=== PATIENT | male | born 1945 | race Caucasian/White ===

== ENCOUNTER → 2017-08-31 | Day surgery (SDC) | payer MEDICARE ==
[~2017-08-31] MED LIST: ALAV10TA10 PO; ALBU0.08 NEB; ALBU1AER5 INH; ASPI1TAB69 PO; BUPIVACAINE/EPINEPHRINE 0.25% PF 30 ML VIAL ONE; DILT1TAB6 PO; DOFE500 PO; FENO67CA PO; FLUT1INH7 INH; FURO40TA PO; GLIM2TAB PO; IPRASOL INH; LISI-515 PO; METF500T PO; MIDAZOLAM HCL 2 MG/2 ML VIAL ONE; MONT10TA4 PO; MORPHINE SULFATE 4 MG/ML INJ ONE; NEOMYCIN/POLYMYXIN/BACITRACIN OINT 15 GM TUBE ONE; OMEG1CAP53 PO; OMEP20TA93 PO; ONDANSETRON HCL 4 MG/2 ML VIAL IV PUSH ONE; PRESCAP5 PO; PROPOFOL 200 MG/20 ML AMP IV ONE; SERT-132 PO; SIMV80TA PO; TEST200I12 IM; TRAZ50TA12 PO; XARE20TA PO; ceFAZolin 2 GM PREMIX 50 ML ONE
--- NOTE | 2017-08-31 11:31 | TN ---
cc: EMILY FARRAR M.D. DATE OF SURGERY 08/31/2017 PREOPERATIVE DIAGNOSES 1. Symptomatic enlarging umbilical hernia. 2. Obesity. POSTOPERATIVE DIAGNOSES 1. Symptomatic enlarging umbilical hernia. 2. Obesity. PROCEDURE PERFORMED Umbilical hernia repair with mesh. SURGEON Emily Farrar MD ANESTHESIA General LMA. COMPLICATIONS None. INDICATION FOR PROCEDURE Mr. Fernandez is a pleasant 72-year-old gentleman who had asymptomatic enlarging umbilical hernia. He was seen and evaluated in the office, found to have chronically incarcerated fat within a small to moderate-sized umbilical hernia. He was offered elective repair. The risks and benefits of repair was discussed with him. He was agreeable. DETAILS The patient was identified, brought to the operating room, placed supine on the operating room table. After adequate general anesthesia was achieved by LMA the anterior abdomen was prepped and draped in standard surgical fashion. The infraumbilical space was anesthetized with 0.25% Marcaine. Infraumbilical incision was made and dissection was carried down in the subcutaneous tissue identifying the umbilical stalk. The umbilical stalk was then dissected circumferentially. The umbilical stalk was then transected off of the hernia sac. The hernia sac was opened and found to contain preperitoneal fat which was an incarcerated. It was manually reduced back into the preperitoneal space under the fascia. The fascia was then cleaned off circumferentially. Fascial defect measured about 1-2 cm in diameter. It was first primarily closed using a zero Prolene suture, interrupted x3. Once we did this, dissection was cleaned off circumferentially around the defect and four 2-0 Prolene stay sutures were then placed in the four corners about 1 cm away from the repair. An onlay mesh was then place of polypropylene, fashioned into about a 2 x 2 square. It was secured in the four corners with the Prolene sutures. With this the defect was completely covered in two layers with the primary repair underneath and a mesh onlay on top. There is generous mesh overlap over the previous fascial defect. The wound was injected with additional local anesthetic. The wound was irrigated out with about 100 cc of saline solution. The umbilical stalk was then tacked down to the abdominal wall using a 2-0 Vicryl. Subcutaneous tissue was closed with 3-0 Vicryl and the skin was closed with 4-0 Vicryl. The patient tolerated the procedure well, was wakened and brought to Recovery in stable condition. Emily MD CHRIS Farrar /10:54 AM /11:20 AM
== END | disposition home or self-care (01) ==
LOC: ESDC 07:38
PROVIDERS: ATTEND Surgery Trauma Surgery
DX: K42.9 Umbilical hernia without obstruction or gangrene (principal); E66.9 Obesity, unspecified
CPT/HCPCS: 00750; 49587; C1781; J0690; J2250; J2270; J2405; J3010